=== PATIENT | female | born 1965 | race Hispanic/Latino ===

== ENCOUNTER 2020-02-13 14:15 | Emergency (ER) | payer SELFPAY ==
[2020-02-13 14:16] VITALS: BP 138/83; PULSE 94; RESP 16; TEMP 36.4; O2SAT 100; BMI 31.7
--- NOTE | 2020-02-13 15:15 | RAD_ITS ---
STUDY: X-RAY - LEFT HAND, ATTENTION INDEX FINGER REASON FOR EXAM: Female, 54 years old. STAPLED 2ND DIGIT TO WOODEN BOARD TECHNIQUE: 3 view(s) of the finger were obtained. COMPARISON: None. FINDINGS: Normal metacarpal head. Normal metacarpophalangeal joint. Normal proximal phalanx. Normal middle phalanx. Normal distal phalanx. Normal proximal interphalangeal joint. Normal distal interphalangeal joint. Soft tissue swelling. RAD/Finger(s) Min 2 Views IMPRESSION: Soft tissue swelling. No radiopaque foreign body is seen. Pending Final Proof Editing
--- NOTE | 2020-02-13 15:42 | ED.VIS.GEN ---
History of Present Illness Chief Complaint: Upper Extremity Injury Informant: Patient Narrative: Patient was at work today when an industrial size staple went through her finger into a block of wood. She is unable to get the finger out. Last tetanus shot she states was 3 years ago. She is right-handed. We talked through a training executive. Past Medical History - Allergies and Home Meds Allergies/Adverse Reactions: Allergies No Known Allergies Allergy (Verified 02/13/20 14:16) Primary Care Physician: Tami Stephen DO [STAFF PHYSICIAN] - 1 Week Past Medical History: None Surgical History: noncontributory Smoking Status: Never smoker Drugs: None Review of Systems General: Denies: Chills, Fever, Sweats Eyes: Denies: Visual changes - bilaterally, Diplopia ENT: Denies: Rhinorrhea, Sore throat Cardiovascular: Denies: Chest pain, Palpitations Respiratory: Denies: Dyspnea, Cough, Dyspnea on exertion Gastrointestinal: Denies: Abdominal pain, Nausea, Vomiting, Diarrhea, Melena, Hematochezia Genitourinary: Denies: Dysuria, Hematuria, Frequency Musculoskeletal: Reports: Extremity Pain. Denies: Back pain Skin: Denies: Rash, Wounds Neurological: Denies: Headache, Weakness, Numbness Physical Exam Vital Signs/Narrative: Vital Signs Temp Pulse Resp BP Pulse Ox 02/13/20 14:16 97.6 F L 94 16 138/83 H 100 Inital Vital Signs reviewed: Yes General: Well nourished, Well developed, Obese, No Acute Distress Head: Normocephalic, Atraumatic Eyes: Perrl, EOMI ENT: Moist mucous membranes, No rhinorrhea Neck: Supple, Nontender Cardiovascular: Regular rate, Regular rhythm, No murmurs Respiratory: No distress, CTA bilaterally, Chest nontender Abdomen: Soft, Nontender, Nondistended, Normal bowel sounds Back: Nontender, Normal Inspection Extremities: No edema, - - Over the lateral aspect of the left index finger near the PIP joint is a large staple going through the skin into a 2 x 2 block of wood. Distal finger appears pink and sensation preserved Skin: Normal color, No rash Neurological: Alert, Oriented x3, Cranial nerves II-XII grossly intact, Normal Strength, Normal Sensation Psychological: Normal affect, Normal Mood Diagnostic/Tx/Re-eval Clinical Impression(s) from Imaging Studies Finger X-Ray 02/13/20 15:15 IMPRESSION: Soft tissue swelling. No radiopaque foreign body is seen. Pending Final Proof Editing - Medical Decision Making The finger was digitally blocked using 1% lidocaine. Was able to cut through the glove and remove it. There is just enough space in between the block of the wound in the volar aspect of the finger that I could squeeze a small pair of steps. I was able to free the finger from the wood. We are then able to grasp of the remaining part of the staple with hemostats and removed. Postprocedural x-ray was negative. Explained to the patient she is extremely high risk for infection and complications. Her can place her on Keflex I will write for a few Percocet. She should follow-up with plastic surgery. At this point I am not going to suture the wound closed given however high risk it is. ED Disposition - Plan for ED Patient: Disposition: Home or Assisted Living Diagnosis: Foreign body of finger of left hand Instructions: ED Foreign Body Soft Tissue Removed Prescriptions: Cephalexin [Keflex] 500 mg PO Q6 #40 cap Prescription Printed Oxycodone HCl/Acetaminophen [Percocet 5/325] 1 tab PO Q6H PRN PRN 3 Days #12 tab PRN Reason: Pain Prescription Printed Referrals: Tami Stephen DO [STAFF PHYSICIAN] - 1 Week Additional Instructions: In 2 days you can take the dressing down and clean the wounds. Avoid alcohol or hydrogen peroxide. Keep the wounds cleansed and dressed. Take care to not get the wound is dirty. Print Language: Turkish
[2020-02-13] MEDS: Cephalexin 250 MG Capsule 500 MG PO (16:28)
== END 2020-02-13 16:40 | disposition home or self-care (01) ==
PROVIDERS: Emergency Provider Emergency Medicine
DX: S61.241A Puncture wound with foreign body of left index finger without damage to nail, initial encounter (principal); W45.8XXA Other foreign body or object entering through skin, initial encounter; Y93.9 Activity, unspecified; Y92.9 Unspecified place or not applicable; Y99.9 Unspecified external cause status; E66.9 Obesity, unspecified
CPT/HCPCS: 73140; 99284